=== PATIENT | female | born 1980 | race Asian ===

== ENCOUNTER → 2018-03-30 | Outpatient (CLI) | payer OTHER | LOC: FIMAGING 11:36 | PROVIDERS: ATTEND Hospitalist | DX: O09.522 Supervision of elderly multigravida, second trimester (principal); O09.292 Supervision of pregnancy with other poor reproductive or obstetric history, second trimester; Z3A.20 20 weeks gestation of pregnancy ==

== ENCOUNTER 2018-08-09 10:17 | Inpatient (IN) | payer OTHER | END 2018-08-11 17:45 | disposition home or self-care (01) | LOC: FLD 10:17 → FOB 08-10 11:06 ==